=== PATIENT | female | born 1995 | race Caucasian/White ===

== ENCOUNTER 2021-03-27 15:52 | Emergency (ER) | payer OTHER ==
[~2021-03-27] VITALS: Ht 152.4 cm; Wt 96.1 kg
[2021-03-27] MEDS ORDERED: MULTTAB20 PO (16:01)
[2021-03-27 16:33] LABS: BASO % 0.3 % (0.0-1.0); EOS # 0.1 10^3/uL (0.0-0.5); EOS % 0.7 % (0.0-3.0); HEMATOCRIT 41.6 % (36.0-47.0); HEMOGLOBIN 13.4 g/dl (12.0-15.5); LYMPH # 2.2 10^3/uL (1.5-5.0); LYMPH % 23.5 % (24.0-44.0); MEAN CORPUSCULAR HEMOGLOBIN 28.3 pg (27.0-33.0); MEAN CORPUSCULAR HGB CONC 32.2 g/dl (32.0-36.5); MEAN CORPUSCULAR VOLUME 87.8 fl (80.0-96.0); MONO # 0.7 10^3/uL (0.0-0.8); MONO % 7.4 % (2.0-8.0); NEUTROPHILS # 6.3 10^3/uL (1.5-8.5); NEUTROPHILS % 67.8 % (36.0-66.0); PLATELET COUNT, AUTOMATED 407 10^3/uL (150-450); RED BLOOD COUNT 4.74 10^6/uL (4.00-5.40); WHITE BLOOD COUNT 9.2 10^3/uL (4.0-10.0)
[2021-03-27 16:58] LABS: BLOOD UREA NITROGEN 6 MG/DL (7-18); CALCIUM LEVEL 8.7 MG/DL (8.5-10.1); CARBON DIOXIDE LEVEL 32 MEQ/L (21-32); CHLORIDE LEVEL 105 MEQ/L (98-107); CREATININE FOR GFR 0.66 MG/DL (0.55-1.30); GLOMERULAR FILTRATION RATE > 60.0 (>60); GLUCOSE, FASTING 112 MG/DL (70-100); HCG, SERUM QUANTITATIVE 94 MIU/ML; POTASSIUM SERUM 4.1 MEQ/L (3.5-5.1); SODIUM LEVEL 139 MEQ/L (136-145)
--- NOTE | 2021-03-27 17:28 | REP ---
INDICATION: 7 weeks , vaginal bleeding COMPARISON: None TECHNIQUE: Transabdominal and transvaginal 1st trimester obstetrical ultrasound with color Doppler evaluation. FINDINGS: Bladder is unremarkable and measures 7.4 x 6.2 x 8.4 cm. Anteverted uterus measures 6.8 x 3.2 x 4.7 cm. No intrauterine is identified. There is a small heterogeneous area within the endocervical canal measuring 13 x 5 x 7 mm suggesting hemorrhagic debris. Bilateral maternal ovaries are normal in appearance and vascularity without torsion. Right ovary measures 1.5 x 1.9 x 2.2 cm (RI 0.53). Left ovary measures 2.1 x 1.8 x 2.0 cm (RI 0.43). No pelvic fluid or adnexal mass lesion. IMPRESSION: Findings described above likely represent spontaneous in progress. No intrauterine identified. Correlation with serial HCG levels recommended. <Electronically signed by Howie Miller > 03/27/21 [id number]
[2021-03-27 18:33] VITALS: BP 128/90
== END 2021-03-27 18:36 | disposition home or self-care (01) ==
LOC: M ED 15:52
DX: O03.4 Incomplete spontaneous abortion without complication (principal); Z3A.01 Less than 8 weeks gestation of pregnancy

== ENCOUNTER 2021-05-18 00:48 | Emergency (ER) | payer OTHER ==
[~2021-05-18] VITALS: Ht 152.4 cm; Wt 96.3 kg
[2021-05-18 00:48] VITALS: BP 142/98
[~2021-05-18 00:48] MED LIST: MULTTAB20 PO
== END 2021-05-18 04:40 | disposition left against medical advice (07) ==
LOC: M ED 00:48
DX: Z53.21 Procedure and treatment not carried out due to patient leaving prior to being seen by health care provider (principal)